=== PATIENT | male | born 1975 | race African-American/Black ===

== ENCOUNTER 2019-01-09 16:52 | Emergency (ER) | payer OTHER ==
[~2019-01-09] VITALS: Ht 177.8 cm; Wt 97.5 kg
[2019-01-09] MEDS ORDERED: ZOLOFT50 MG PO (16:55)
[2019-01-09] MEDS ORDERED: NORVASC5 MG PO (16:55)
[2019-01-09] MEDS ORDERED: HYDROCODONE-AP1 EAC6 PO (19:29)
[2019-01-09 19:41] VITALS: BP 145/74
== END 2019-01-09 19:40 | disposition home or self-care (01) ==
LOC: ER 16:52
DX: S62.231A Other displaced fracture of base of first metacarpal bone, right hand, initial encounter for closed fracture (principal); F17.210 Nicotine dependence, cigarettes, uncomplicated; V89.0XXA Person injured in unspecified motor-vehicle accident, nontraffic, initial encounter; Y93.89 Activity, other specified; Y92.410 Unspecified street and highway as the place of occurrence of the external cause; Y99.8 Other external cause status; I10 Essential (primary) hypertension

== ENCOUNTER 2020-05-30 14:36 | Emergency (ER) | payer OTHER ==
[~2020-05-30] VITALS: Ht 175.3 cm; Wt 97.5 kg
[~2020-05-30 14:36] MED LIST: HYDROCODONE-AP1 EAC6 PO; NORVASC5 MG PO; ZOLOFT50 MG PO
[2020-05-30] MEDS ORDERED: MOBIC7.5 MG PO (17:32)
[2020-05-30 17:45] VITALS: BP 174/110
== END 2020-05-30 17:46 | disposition home or self-care (01) ==
LOC: ER 14:36
DX: I88.9 Nonspecific lymphadenitis, unspecified (principal); M54.2 Cervicalgia; I10 Essential (primary) hypertension; F17.210 Nicotine dependence, cigarettes, uncomplicated; Z79.899 Other long term (current) drug therapy